=== PATIENT | male | born 1980 | race Caucasian/White ===

== ENCOUNTER 2023-02-10 23:28 | Emergency (ER) | payer OTHER, SELFPAY ==
[2023-02-10 23:31] VITALS: BP 146/96; PULSE 77; RESP 14; TEMP 36.4; O2SAT 97
[2023-02-11 00:55] VITALS: BP 136/97; PULSE 81; RESP 18; TEMP 36.4; O2SAT 99
[2023-02-11 01:01] VITALS: BP 136/97; PULSE 81; RESP 18; O2SAT 100
--- NOTE | 2023-02-11 01:27 | ED.SKABFB ---
HPI - Skin/Abscess/Foreign Bdy General Chief complaint: Skin/Abscess/Foreign Body Stated complaint: Groin pain Time Seen by Provider: 02/11/23 00:59 History of Present Illness HPI narrative: 22-year-old male reports for evaluation for rectal pain and perineal pain and itchiness for the past few days. Patient states he feels the pain has worsened over the past day or so. States today he was in the shower and he looked at his perineum in the mirror and saw a ?split?. He denies abdominal pain, scrotal or testicular pain, penile pain, penile discharge, rectal discharge, diarrhea or constipation, fever, urinary complaints, concern for STDs. Denies insertive anal intercourse. Related Data Allergies Allergy/AdvReac Type Severity Reaction Status Date / Time No Known Allergies Allergy Verified 02/11/23 01:06 Review of Systems Review of Systems: CONSTITUTIONAL: Denies fever, chills, or sweats. EYES: Denies visual changes, redness, or discharge. ENT: Denies rhinorrhea, congestion, sore throat, or otalgia. CARDIOVASCULAR: Denies chest pain, palpitations, or edema. RESPIRATORY: Denies cough or dyspnea. GASTROINTESTINAL: Denies abdominal pain, nausea, vomiting, or diarrhea. GENITOURINARY: Denies dysuria or hematuria. SKIN: See HPI MUSCULOSKELETAL: Denies back pain, joint pain, or myalgia. NEUROLOGIC: Denies headache, numbness, or weakness. PSYCHIATRIC: Denies anxiety or depression. Exam Narrative: GENERAL: Well-appearing, well-nourished, and in no acute distress. HEAD: Normocephalic, atraumatic. EYES: PERRLA and EOMI. ENT: Nares clear, no rhinorrhea or epistaxis. Mucous membranes moist. NECK: Supple. CHEST: Clear to auscultation. No respiratory distress. HEART: Regular rate and rhythm. No murmur heard. Normal peripheral pulses. ABDOMEN: Soft, nontender, nondistended, normal active bowel sounds. No CVA tenderness. Rectal exam: 2cm blanching erythema around the perimeter of the anus with an anterior anal fissure. No external or internal hemorrhoids palpated. No fluctuation, induration, crepitus or necrosis. No melena or gross hematochezia. Perineum is soft and without crepitus or edema. No tenderness or edema 2 testicles or scrotum. EXTREMITIES: Normal range of motion. No edema. SKIN: Warm, dry, no rash. NEURO: No focal deficits. Alert and oriented x3 Course Vital Signs Vital signs: Vital Signs Temperature 97.6 F 02/10/23 23:31 Pulse Rate 77 02/10/23 23:31 Respiratory Rate 14 02/10/23 23:31 Blood Pressure 146/96 H 02/10/23 23:31 Pulse Oximetry 97 02/10/23 23:31 Oxygen Delivery Room Air 02/10/23 23:31 Temperature 97.6 F 02/11/23 00:55 Pulse Rate 81 02/11/23 02:14 Respiratory Rate 18 02/11/23 02:14 Blood Pressure 126/79 02/11/23 02:14 Pulse Oximetry 98 02/11/23 02:14 Oxygen Delivery Room Air 02/11/23 00:55 MDM - Skin/Abscess/Foreign Bdy MDM Narrative Medical decision making narrative: 42-year-old male reports for evaluation for rectal pain and itching for the past few days. See HPI for further history. Vitals are stable a mildly elevated blood pressure. He is afebrile. Exam is significant for dermatitis surrounding the anus with an anal fissure. Exam is not consistent with Praful's or rectal abscess. There is no fluctuation, induration or necrosis. He denies history of insert of anal intercourse or concern for STDs consistent with proctitis. Plan to discharge him home with zinc oxide and nitroglycerin ointment and close PCP follow-up. Strict ED return precautions discussed. She is agreeable to plan verbalized understanding. Discharged in stable condition. Discharge Plan Discharge Clinical Impression: Anal fissure, Dermatitis Patient Disposition: Home, Self-Care Condition: Stable Instructions: Antibiotic Form, Anal Fissure (ED) Additional Instructions: You were evaluated in the emergency department for rectal pain. He was seen shows inflammation around t
[2023-02-11 02:14] VITALS: BP 126/79; PULSE 81; RESP 18; O2SAT 98
== END 2023-02-11 02:14 | disposition home or self-care (01) ==
LOC: ANHED 02-11 01:49
PROVIDERS: Emergency Provider Physician Assistant
DX: K60.2 Anal fissure, unspecified (principal); L30.9 Dermatitis, unspecified
CPT/HCPCS: 99283